=== PATIENT | male | born 1945 | race Caucasian/White ===

== ENCOUNTER 2018-12-07 10:41 | Emergency (ER) | payer MEDICARE, OTHER ==
[~2018-12-07] VITALS: Ht 170.2 cm; Wt 109.1 kg
[2018-12-07] MEDS ORDERED: RANI300T (10:55)
[2018-12-07] MEDS ORDERED: ASPI1CHW2 (10:55)
[2018-12-07] MEDS ORDERED: [UNRECOGNIZED DRUG - OTHER] (10:55)
--- NOTE | 2018-12-07 11:32 | REP ---
CT Head without contrast HISTORY: Injury COMPARISON: None There is no intraparenchymal hemorrhage, acute infarct, mass or midline shift. The ventricular system and cortical sulci are dilated consistent with minimal volume loss. There is no extra cerebral collection. There is no fracture. The visualized sinuses are clear. IMPRESSION: Minimal volume loss. Electronically Signed by Lam Phoenix MD 12/07/2018 11:23 A
--- NOTE | 2018-12-07 11:36 | REP ---
CT cervical spine without contrast HISTORY: Injury COMPARISON: None There is no acute fracture or subluxation. Disc bulges are present at the C3-4 and C4-5 levels. Disc bulges with associated osteophyte formation are present at the C5-6 and C6-7 levels. There is minimal narrowing of the spinal canal. Uncinate process and/or facet hypertrophy are present at the C2-3 through C6-7 levels. These findings produce minimal to moderate narrowing of the neural foramina. The cervical intervertebral discs are decreased in height consistent with disc degeneration. There is partial fusion of the C2 and C3 vertebral bodies. IMPRESSION: 1. There is no acute fracture or subluxation. 2. There is cervical spondylosis at the C2-3 through C6-7 levels. Electronically Signed by Lam Phoenix MD 12/07/2018 11:28 A
--- NOTE | 2018-12-07 11:42 | REP ---
CT thoracic spine without contrast. HISTORY: Injury COMPARISON : None There is no acute fracture or subluxation. There is no disc bulge or herniation. The spinal canal and neural foramina are patent. There is loss of height of several mid and lower thoracic intervertebral discs. Vacuum phenomenon is present in several discs. These findings are consistent with disc degeneration. Anterior osteophytes are present throughout the thoracic spine. IMPRESSION: There is no acute fracture or subluxation. Electronically Signed by Lam Phoenix MD 12/07/2018 11:34 A
[2018-12-07] MEDS ORDERED: NORCO, ANEXSIA 5/325MG TABLET (HYDROcodone/ACETAMINOPHEN) PO ONE (12:00)
--- NOTE | 2018-12-07 12:18 | REP ---
BILATERAL RIB SERIES: Four views of bilateral ribs performed. No fracture or bone lesion is seen. An accompanying view of the chest demonstrates no acute infiltrate, pneumothorax, or pleural effusion. Heart is normal in size. Mediastinal silhouette appears unremarkable except for right hilar calcified lymph nodes. IMPRESSION: No evidence of rib fracture bilaterally. Electronically Signed by Chuck Ferraro MD 12/07/2018 03:27 P
[2018-12-07] MEDS ORDERED: HYDR-3715 PO (12:29)
[2018-12-07 12:40] VITALS: BP 143/67
== END 2018-12-07 12:42 | disposition home or self-care (01) ==
LOC: M ED 10:41
DX: S46.811A Strain of other muscles, fascia and tendons at shoulder and upper arm level, right arm, initial encounter (principal); S46.812A Strain of other muscles, fascia and tendons at shoulder and upper arm level, left arm, initial encounter; W22.8XXA Striking against or struck by other objects, initial encounter; Y92.099 Unspecified place in other non-institutional residence as the place of occurrence of the external cause; Y93.9 Activity, unspecified; Y99.9 Unspecified external cause status; M19.90 Unspecified osteoarthritis, unspecified site; F17.290 Nicotine dependence, other tobacco product, uncomplicated; M47.812 Spondylosis without myelopathy or radiculopathy, cervical region; Z79.82 Long term (current) use of aspirin; Z79.899 Other long term (current) drug therapy; Z91.030 Bee allergy status

== ENCOUNTER 2022-12-14 22:10 | Inpatient (IN) | payer MEDICARE, OTHER ==
[~2022-12-14] VITALS: Ht 172.7 cm; Wt 131.6 kg
[~2022-12-14 22:10] MED LIST: ASPI1CHW2; HYDR-3715 PO; RANI300T; [UNRECOGNIZED DRUG - OTHER]
[2022-12-14] MEDS ORDERED: LOSA50TA28 PO (22:40)
[2022-12-14] MEDS ORDERED: PANT20TA6 PO (22:40)
[2022-12-14] MEDS ORDERED: XELJ11TA PO (22:40)
[2022-12-14] MEDS ORDERED: ASPI-264 PO (22:40)
[2022-12-14] MEDS ORDERED: SEMA0.257 SQ (22:40)
[2022-12-14] MEDS ORDERED: ATOR1TAB21 PO (22:40)
[2022-12-14] MEDS ORDERED: GOLO PO (22:45)
[2022-12-14] MEDS ORDERED: MORPHINE 4 MG/ML 1ML VIAL IV ONE (23:30)
[2022-12-14] MEDS ORDERED: NS 1,000 ML IV ONE (23:30)
[2022-12-14] MEDS ORDERED: ONDANSETRON 4MG 2ML VIAL IV ONE (23:30)
[2022-12-14 23:51] LABS: BASO % 0.5 % (0.0-1.0); EOS % 0.2 % (0.0-3.0); HEMOGLOBIN 11.7 g/dl (13.5-17.5); LYMPH # 0.5 10^3/uL (1.5-5.0); LYMPH % 5.8 % (24.0-44.0); MEAN CORPUSCULAR HEMOGLOBIN 31.7 pg (27.0-33.0); MEAN CORPUSCULAR HGB CONC 33.4 g/dl (32.0-36.5); MEAN CORPUSCULAR VOLUME 94.9 fl (80.0-96.0); MONO # 0.4 10^3/uL (0.0-0.8); MONO % 4.3 % (2.0-8.0); NEUTROPHILS # 7.4 10^3/uL (1.5-8.5); NEUTROPHILS % 88.8 % (36.0-66.0); PLATELET COUNT, AUTOMATED 204 10^3/uL (150-450); RED BLOOD COUNT 3.69 10^6/uL (4.30-6.10); WHITE BLOOD COUNT 8.3 10^3/uL (4.0-10.0)
[2022-12-15] VITALS (17 sets, daily range): BP systolic 141–169; BP diastolic 66–81; O2SAT 87–96
[2022-12-15 00:08] LABS: ALBUMIN 3.8 G/DL (3.2-5.2); ALKALINE PHOSPHATASE 133 U/L (46-116); ALT/SGPT 708 U/L (7.0-40); AST/SGOT 640 U/L (<34); BILIRUBIN,DIRECT 0.8 MG/DL (<0.4); BILIRUBIN,TOTAL 1.2 MG/DL (0.3-1.2); BLOOD UREA NITROGEN 14 MG/DL (9-23); CALCIUM LEVEL 8.3 MG/DL (8.3-10.6); CARBON DIOXIDE LEVEL 29 MMOL/L (20-31); CHLORIDE LEVEL 100 MMOL/L (98-107); CREATININE FOR GFR 0.93 MG/DL (0.70-1.30); GLOMERULAR FILTRATION RATE > 60.0 (>42); GLUCOSE, FASTING 187 MG/DL (74-106); POTASSIUM SERUM 3.5 MMOL/L (3.5-5.1); SODIUM LEVEL 137 MMOL/L (136-145); TOTAL PROTEIN 6.8 G/DL (5.7-8.2)
[2022-12-15] MEDS ORDERED: ISOVUE-370 76% 100ML VIAL As Ordered ONE (00:17)
[2022-12-15 00:39] LABS: LIPASE 3495 U/L (12-53)
[2022-12-15] MEDS ORDERED: NS 1,000 ML IV ONE (02:50)
[2022-12-15] MEDS ORDERED: PIPERACILLIN/TAZOBACTAM SOD 4.5 GM in D5W MINI-BAG PLUS 50 ML IV ONE (02:55)
[2022-12-15] MEDS ORDERED: VITA-243 PO (03:19)
[2022-12-15] MEDS ORDERED: OMEG10002 PO (03:19)
[2022-12-15] MEDS ORDERED: ASPI81TA26 PO (03:19)
[2022-12-15] MEDS ORDERED: VITA100093 PO (03:19)
[2022-12-15] MEDS ORDERED: IRON240T PO (03:19)
[2022-12-15] MEDS ORDERED: HOME MED LIST COMPLETE! XX SCH (03:20)
[2022-12-15] MEDS ORDERED: MORPHINE 2 MG/ML 1ML VIAL IV PRN (03:40)
[2022-12-15] MEDS ORDERED: ONDANSETRON 4MG 2ML VIAL IV PRN (03:40)
[2022-12-15] MEDS ORDERED: LORazepam 2 MG TAB PO PRN (03:55)
[2022-12-15 04:11] LABS: RSV AMPLIFICATION NEGATIVE (NEGATIVE)
[2022-12-15] MEDS: LR 1,000 ML IV SCH ×3 (04:51→23:46)
[2022-12-15] MEDS: THIAMINE 100 MG TAB PO SCH ×2 (05:07→20:14)
[2022-12-15] MEDS ORDERED: ATROPINE SULF 0.4 MG/ML 1ML VIAL IV STA (05:07)
[2022-12-15] MEDS: HYDROMORPHONE HCL 0.5 MG/ 0.5 ML SYRINGE IV PRN ×2 (06:15→11:24)
[2022-12-15 06:32] LABS: BASO % 0.1 % (0.0-1.0); HEMOGLOBIN 11.4 g/dl (13.5-17.5); LYMPH # 0.5 10^3/uL (1.5-5.0); LYMPH % 7.4 % (24.0-44.0); MEAN CORPUSCULAR HEMOGLOBIN 30.9 pg (27.0-33.0); MEAN CORPUSCULAR HGB CONC 32.6 g/dl (32.0-36.5); MEAN CORPUSCULAR VOLUME 94.9 fl (80.0-96.0); MONO # 0.3 10^3/uL (0.0-0.8); MONO % 4.4 % (2.0-8.0); NEUTROPHILS # 6.4 10^3/uL (1.5-8.5); NEUTROPHILS % 87.8 % (36.0-66.0); PLATELET COUNT, AUTOMATED 192 10^3/uL (150-450); RED BLOOD COUNT 3.69 10^6/uL (4.30-6.10); WHITE BLOOD COUNT 7.3 10^3/uL (4.0-10.0)
[2022-12-15 07:08] LABS: ALBUMIN 3.6 G/DL (3.2-5.2); ALKALINE PHOSPHATASE 121 U/L (46-116); ALT/SGPT 633 U/L (7.0-40); AST/SGOT 420 U/L (<34); BILIRUBIN,TOTAL 0.9 MG/DL (0.3-1.2); BLOOD UREA NITROGEN 13 MG/DL (9-23); CARBON DIOXIDE LEVEL 26 MMOL/L (20-31); CHLORIDE LEVEL 102 MMOL/L (98-107); CHOLESTEROL LEVEL 100 MG/DL (<200); CHOLESTEROL RISK RATIO 1.77 (<5); CREATININE FOR GFR 0.79 MG/DL (0.70-1.30); GLOMERULAR FILTRATION RATE > 60.0 (>42); GLUCOSE, FASTING 164 MG/DL (74-106); HDL CHOLESTEROL 56.4 MG/DL (>40); LDL CHOLESTEROL 30.6 MG/DL (<100); NON-HDL-C 43.6 MG/DL; POTASSIUM SERUM 3.6 MMOL/L (3.5-5.1); SODIUM LEVEL 138 MMOL/L (136-145); TOTAL PROTEIN 6.4 G/DL (5.7-8.2); TRIGLYCERIDES LEVEL 65 MG/DL (<150)
[2022-12-15] MEDS: FOLIC ACID 1MG TAB PO SCH (08:55)
[2022-12-15] MEDS: PANTOPRAZOLE 20 MG TAB PO SCH (08:55)
[2022-12-15] MEDS: PIPERACILLIN/TAZOBACTAM SOD 3.375 GM in D5W MINI-BAG PLUS 50 ML IV SCH ×3 (08:56→20:15)
[2022-12-15] MEDS: LOSARTAN 25 MG TAB PO SCH (08:56)
[2022-12-15] MEDS: MULTIVITAMINS/MINERALS THERAP 1 TAB PO SCH (08:56)
[2022-12-15 13:09] LABS: HEPATITIS B SURFACE ANTIGEN NEGATIVE (NEGATIVE)
[2022-12-15 13:31] LABS: HEPATITIS B CORE ANTIBODY IGM NEGATIVE (NEGATIVE)
[2022-12-16] VITALS (21 sets, daily range): BP systolic 124–160; BP diastolic 58–74; O2SAT 90–96
[2022-12-16] MEDS: PIPERACILLIN/TAZOBACTAM SOD 3.375 GM in D5W MINI-BAG PLUS 50 ML IV SCH ×4 (03:25→20:41)
[2022-12-16 06:11] LABS: BASO % 0.3 % (0.0-1.0); EOS # 0.1 10^3/uL (0.0-0.5); EOS % 0.6 % (0.0-3.0); HEMATOCRIT 33.9 % (42.0-52.0); HEMOGLOBIN 11.1 g/dl (13.5-17.5); LYMPH % 10.1 % (24.0-44.0); MEAN CORPUSCULAR HEMOGLOBIN 31.2 pg (27.0-33.0); MEAN CORPUSCULAR HGB CONC 32.7 g/dl (32.0-36.5); MEAN CORPUSCULAR VOLUME 95.2 fl (80.0-96.0); MONO # 0.7 10^3/uL (0.0-0.8); NEUTROPHILS # 8.1 10^3/uL (1.5-8.5); NEUTROPHILS % 81.5 % (36.0-66.0); PLATELET COUNT, AUTOMATED 191 10^3/uL (150-450); RED BLOOD COUNT 3.56 10^6/uL (4.30-6.10)
[2022-12-16 06:32] LABS: LIPASE 172 U/L (12-53)
[2022-12-16 06:37] LABS: ALBUMIN 3.3 G/DL (3.2-5.2); ALKALINE PHOSPHATASE 95 U/L (46-116); ALT/SGPT 373 U/L (7.0-40); AST/SGOT 123 U/L (<34); BILIRUBIN,TOTAL 0.7 MG/DL (0.3-1.2); BLOOD UREA NITROGEN 13 MG/DL (9-23); CALCIUM LEVEL 8.1 MG/DL (8.3-10.6); CARBON DIOXIDE LEVEL 28 MMOL/L (20-31); CHLORIDE LEVEL 101 MMOL/L (98-107); CREATININE FOR GFR 0.92 MG/DL (0.70-1.30); GLOMERULAR FILTRATION RATE > 60.0 (>42); GLUCOSE, FASTING 133 MG/DL (74-106); POTASSIUM SERUM 3.4 MMOL/L (3.5-5.1); SODIUM LEVEL 137 MMOL/L (136-145); TOTAL PROTEIN 5.7 G/DL (5.7-8.2)
[2022-12-16] MEDS: LR 1,000 ML IV SCH ×2 (09:24→14:28)
[2022-12-16] MEDS: POTASSIUM CHLORIDE 10MEQ SR TABLET PO SCH ×2 (09:24→20:42)
[2022-12-16] MEDS: FOLIC ACID 1MG TAB PO SCH (09:24)
[2022-12-16] MEDS: MULTIVITAMINS/MINERALS THERAP 1 TAB PO SCH (09:24)
[2022-12-16] MEDS: PANTOPRAZOLE 20 MG TAB PO SCH (09:24)
[2022-12-16] MEDS: THIAMINE 100 MG TAB PO SCH ×2 (09:24→20:42)
[2022-12-16] MEDS: LOSARTAN 25 MG TAB PO SCH (09:26)
[2022-12-16] MEDS ORDERED: fentaNYL 250 MCG/5 ML INJECTION As Ordered ONE (11:20)
[2022-12-16] MEDS ORDERED: ONDANSETRON 4MG 2ML VIAL As Ordered ONE (11:20)
[2022-12-16] MEDS ORDERED: ROCURONIUM BROMIDE 50MG/5ML VIAL As Ordered ONE ×2 (11:20→17:24)
[2022-12-16] MEDS ORDERED: MIDAZOLAM INJ 2MG/2ML VIAL As Ordered ONE (11:20)
[2022-12-16] MEDS ORDERED: LIDOCAINE 2% 100MG/5ML SDV (FOR ANES.) As Ordered ONE (11:20)
[2022-12-16] MEDS ORDERED: propofoL 200 MG/20 ML VIAL As Ordered ONE (11:20)
[2022-12-16] MEDS ORDERED: LIDOCAINE 1% SDV 30ML VIAL As Ordered ONE (12:31)
[2022-12-16] MEDS ORDERED: BUPIVACAINE HCL 0.25% 30ML VIAL As Ordered ONE (12:31)
[2022-12-16] MEDS ORDERED: INDOCYANINE GREEN 25MG VIAL (IC-GREEN) As Ordered ONE (12:31)
[2022-12-16] MEDS ORDERED: GLYCOPYRROLATE INJ 0.2 MG/ML 2 ML VIAL As Ordered ONE (16:19)
[2022-12-16] MEDS ORDERED: KETOROLAC 60MG 2ML VIAL As Ordered ONE (16:44)
[2022-12-16] MEDS ORDERED: SUGAMMADEX SODIUM 500 MG/5 ML VIAL (BRIDION) As Ordered ONE (16:44)
[2022-12-16] MEDS ORDERED: hydrALAZINE 20MG/ML 1ML VIAL As Ordered ONE (17:14)
[2022-12-16] MEDS ORDERED: ePHEDrine SULFATE 25 MG/5 ML(5MG/ML) SYRINGE As Ordered ONE (17:25)
[2022-12-16] MEDS ORDERED: LR 1,000 ML IV SCH (18:45)
[2022-12-16] MEDS ORDERED: ONDANSETRON 4MG 2ML VIAL IV PRN (18:45)
[2022-12-16] MEDS ORDERED: HYDROMORPHONE HCL 0.5 MG/ 0.5 ML SYRINGE IV PRN (18:45)
[2022-12-16] MEDS ORDERED: oxyCODONE 5MG TAB PO PRN (18:45)
[2022-12-16] MEDS ORDERED: fentaNYL 100 MCG/2 ML INJECTION IV PRN (18:45)
[2022-12-16] MEDS: HYDROMORPHONE HCL 0.5 MG/ 0.5 ML SYRINGE IV PRN (21:18)
[2022-12-17] VITALS (15 sets, daily range): BP systolic 137–164; BP diastolic 63–96; O2SAT 93–96
[2022-12-17] MEDS: HYDROMORPHONE HCL 0.5 MG/ 0.5 ML SYRINGE IV PRN (00:47)
[2022-12-17] MEDS: PIPERACILLIN/TAZOBACTAM SOD 3.375 GM in D5W MINI-BAG PLUS 50 ML IV SCH ×2 (03:20→08:09)
[2022-12-17 05:29] LABS: BASO % 0.3 % (0.0-1.0); EOS % 0.2 % (0.0-3.0); HEMATOCRIT 32.8 % (42.0-52.0); LYMPH # 0.8 10^3/uL (1.5-5.0); LYMPH % 8.6 % (24.0-44.0); MEAN CORPUSCULAR HEMOGLOBIN 32.1 pg (27.0-33.0); MEAN CORPUSCULAR HGB CONC 33.5 g/dl (32.0-36.5); MEAN CORPUSCULAR VOLUME 95.6 fl (80.0-96.0); MONO # 0.8 10^3/uL (0.0-0.8); MONO % 8.3 % (2.0-8.0); NEUTROPHILS # 7.9 10^3/uL (1.5-8.5); NEUTROPHILS % 82.2 % (36.0-66.0); PLATELET COUNT, AUTOMATED 192 10^3/uL (150-450); RED BLOOD COUNT 3.43 10^6/uL (4.30-6.10); WHITE BLOOD COUNT 9.6 10^3/uL (4.0-10.0)
[2022-12-17 06:01] LABS: ALBUMIN 3.1 G/DL (3.2-5.2); ALKALINE PHOSPHATASE 82 U/L (46-116); ALT/SGPT 308 U/L (7.0-40); AST/SGOT 99 U/L (<34); BILIRUBIN,TOTAL 0.7 MG/DL (0.3-1.2); BLOOD UREA NITROGEN 14 MG/DL (9-23); CALCIUM LEVEL 8.1 MG/DL (8.3-10.6); CARBON DIOXIDE LEVEL 28 MMOL/L (20-31); CHLORIDE LEVEL 103 MMOL/L (98-107); CREATININE FOR GFR 0.94 MG/DL (0.70-1.30); GLOMERULAR FILTRATION RATE > 60.0 (>42); GLUCOSE, FASTING 137 MG/DL (74-106); POTASSIUM SERUM 4.1 MMOL/L (3.5-5.1); SODIUM LEVEL 137 MMOL/L (136-145); TOTAL PROTEIN 5.8 G/DL (5.7-8.2)
[2022-12-17] MEDS: ASCORBIC ACID 500 MG TAB PO SCH (08:09)
[2022-12-17] MEDS: THIAMINE 100 MG TAB PO SCH ×2 (08:09→21:38)
[2022-12-17] MEDS: VITAMIN D 1,000 INTERNATIONAL UNITS TABLET PO SCH (08:09)
[2022-12-17] MEDS: MULTIVITAMINS/MINERALS THERAP 1 TAB PO SCH (08:09)
[2022-12-17] MEDS: ATORVASTATIN 20 MG TAB PO SCH (08:09)
[2022-12-17] MEDS: PANTOPRAZOLE 20 MG TAB PO SCH (08:09)
[2022-12-17] MEDS: OMEGA-3 1000MG CAPSULE PO SCH (08:10)
[2022-12-17] MEDS: LOSARTAN 25 MG TAB PO SCH (08:10)
[2022-12-17] MEDS: FOLIC ACID 1MG TAB PO SCH (08:10)
[2022-12-17] MEDS ORDERED: PERCOCET 5MG/325MG TAB PO PRN ×2 (08:45)
[2022-12-18 03:22] VITALS: BP 178/98
[2022-12-18 05:27] LABS: BASO % 0.4 % (0.0-1.0); EOS # 0.2 10^3/uL (0.0-0.5); EOS % 1.8 % (0.0-3.0); LYMPH # 0.8 10^3/uL (1.5-5.0); LYMPH % 7.7 % (24.0-44.0); MEAN CORPUSCULAR HEMOGLOBIN 31.1 pg (27.0-33.0); MEAN CORPUSCULAR HGB CONC 32.4 g/dl (32.0-36.5); MONO # 0.8 10^3/uL (0.0-0.8); MONO % 7.9 % (2.0-8.0); NEUTROPHILS # 7.9 10^3/uL (1.5-8.5); NEUTROPHILS % 81.8 % (36.0-66.0); PLATELET COUNT, AUTOMATED 201 10^3/uL (150-450); RED BLOOD COUNT 3.54 10^6/uL (4.30-6.10); WHITE BLOOD COUNT 9.7 10^3/uL (4.0-10.0)
[2022-12-18 05:51] LABS: ALBUMIN 2.9 G/DL (3.2-5.2); ALKALINE PHOSPHATASE 73 U/L (46-116); ALT/SGPT 203 U/L (7.0-40); AST/SGOT 40 U/L (<34); BILIRUBIN,TOTAL 0.7 MG/DL (0.3-1.2); BLOOD UREA NITROGEN 13 MG/DL (9-23); CALCIUM LEVEL 8.1 MG/DL (8.3-10.6); CARBON DIOXIDE LEVEL 27 MMOL/L (20-31); CHLORIDE LEVEL 102 MMOL/L (98-107); CREATININE FOR GFR 0.79 MG/DL (0.70-1.30); GLOMERULAR FILTRATION RATE > 60.0 (>42); GLUCOSE, FASTING 121 MG/DL (74-106); POTASSIUM SERUM 3.8 MMOL/L (3.5-5.1); SODIUM LEVEL 136 MMOL/L (136-145); TOTAL PROTEIN 5.8 G/DL (5.7-8.2)
[2022-12-18 08:04] VITALS: BP 144/67
[2022-12-18] MEDS: OMEGA-3 1000MG CAPSULE PO SCH (08:38)
[2022-12-18] MEDS: ASCORBIC ACID 500 MG TAB PO SCH (08:39)
[2022-12-18] MEDS: LOSARTAN 25 MG TAB PO SCH (08:39)
[2022-12-18] MEDS: VITAMIN D 1,000 INTERNATIONAL UNITS TABLET PO SCH (08:39)
[2022-12-18] MEDS: PANTOPRAZOLE 20 MG TAB PO SCH (08:39)
[2022-12-18] MEDS: ATORVASTATIN 20 MG TAB PO SCH (08:39)
[2022-12-18] MEDS: FOLIC ACID 1MG TAB PO SCH (08:39)
[2022-12-18] MEDS: MULTIVITAMINS/MINERALS THERAP 1 TAB PO SCH (08:39)
[2022-12-18] MEDS ORDERED: PERCOCET PO (09:10)
== END 2022-12-18 12:00 | disposition home or self-care (01) | DRG 417 ==
LOC: M ED 22:10 → M ED INP 12-15 03:39 → ENRESERV 12-15 04:16 → M PCU 12-15 04:35
PROVIDERS: ADMIT Internal Medicine; ATTEND Student in an Organized Health Care Education/Training Program
PROC: 8E0W4CZ Robotic Assisted Procedure of Trunk Region, Percutaneous Endoscopic Approach (ICD-10-PCS; 2022-12-16)
PROC: 0FT44ZZ Resection of Gallbladder, Percutaneous Endoscopic Approach (ICD-10-PCS; principal; 2022-12-16 15:30)
DX: K80.10 Calculus of gallbladder with chronic cholecystitis without obstruction (principal); K85.10 Biliary acute pancreatitis without necrosis or infection; Z68.41 Body mass index [BMI] 40.0-44.9, adult; K21.9 Gastro-esophageal reflux disease without esophagitis; M19.90 Unspecified osteoarthritis, unspecified site; I10 Essential (primary) hypertension; M06.9 Rheumatoid arthritis, unspecified; D50.9 Iron deficiency anemia, unspecified; G47.33 Obstructive sleep apnea (adult) (pediatric); Z79.82 Long term (current) use of aspirin; Z79.899 Other long term (current) drug therapy; Z91.030 Bee allergy status; Z96.653 Presence of artificial knee joint, bilateral; Z96.642 Presence of left artificial hip joint; Z87.891 Personal history of nicotine dependence; E78.5 Hyperlipidemia, unspecified; N28.9 Disorder of kidney and ureter, unspecified; R74.01 Elevation of levels of liver transaminase levels; E66.9 Obesity, unspecified; R00.1 Bradycardia, unspecified